=== PATIENT | male | born 1945 ===

== ENCOUNTER 2023-03-18 19:30 | Outpatient (REF) | payer MEDICARE, SELFPAY ==
[2023-03-18 21:14] LABS: Bilirubin Small (Negative); Blood Large (Negative); Clarity Clear (Clear); Glucose Negative (Negative); Ketones 15 mg/dL (Negative); Leukocyte Esterase Negative (Negative); Nitrite Negative (Negative); pH 7.5 (5-8)
[2023-03-18 21:31] LABS: Bacteria Rare HPF (Negative); C & S Indicated? C&S Done As Ordered; Casts Negative LPF (Negative); Crystals Negative HPF (Negative); Epithelial Cells Negative HPF (Negative); Mucus Negative (Negative); WBC Negative HPF (0-5)
== END 2023-03-18 19:31 | disposition home or self-care (01) ==
LOC: LBN 19:30
PROVIDERS: Visit Provider Family Medicine
DX: R33.9 Retention of urine, unspecified (principal); R41.9 Unspecified symptoms and signs involving cognitive functions and awareness
CPT/HCPCS: 81003; 81015; 87086